=== PATIENT | female | born 1955 | race Caucasian/White ===

== ENCOUNTER → 2016-06-19 | Outpatient (CLI) | payer OTHER ==
[~2016-06-19] MED LIST: ACET-1256 PO; ASPEC325 PO; ASPI81TA28 PO; BIOT1CAP3 PO; BUPRTAB51 PO; COEN200C4 PO; CRG40 PO; CRS/10 PO; FRRG PO; HYDR-5688 PO; HYDR25TA5 PO; LEVO125T72 PO; LSN5 PO; MISCCAP80 PO; MULT-506 PO; QUET1TAB34 PO
[2016-06-19 11:20] LABS: BASO % 0.6 %; BASO ABS # 0.03 K/uL (0-0.2); COMPLETE YES; EOS % 2.8 %; IG% 0.2 %; LYMPH % 41.6 %; LYMPH ABS # 2.21 K/uL (1.2-3.4); MEAN CORPUSCULAR HEMOGLOBIN 33.3 pg (25-34); MEAN CORPUSCULAR HGB CONC 33.7 g/dl (32-36); MEAN PLATELET VOLUME 10.6 fL (7.4-10.4); MONO % 8.5 %; NEUT % 46.3 %; PLATELET COUNT 295 K/uL (130-400); RED BLOOD COUNT 4.14 M/uL (4.2-5.4); WHITE BLOOD COUNT 5.31 K/uL (4.8-10.8)
[2016-06-19 11:24] LABS: ESTIMATED AVERAGE GLUCOSE 114 mg/dl; HA1C FLAG Normal (Normal)
[2016-06-19 11:30] LABS: ALT/SGPT 24 U/L (12-78); BLOOD UREA NITROGEN 34 mg/dl (7-18); CALCIUM 9.5 mg/dl (8.5-10.1); CARBON DIOXIDE 25 mmol/L (21-32); CHLORIDE 108 mmol/L (98-107); CHOLESTEROL 281 mg/dl (0-200); GLUCOSE 93 mg/dl (70-99); POTASSIUM 4.2 mmol/L (3.5-5.1); SODIUM 141 mmol/L (136-145); TRIGLYCERIDES 203 mg/dl (0-150); VERY LOW DENSITY LIPOPROT CALC 41 mg/dl
[2016-06-19 11:40] LABS: ALB/GLOB RATIO 0.9 (0.9-2); ALKALINE PHOSPHATASE 67 U/L (45-117); AST/SGOT 15 U/L (15-37); CHOLESTEROL/HDL RATIO 4.8; HDL CHOLESTEROL 58 mg/dl; LDL CHOLESTEROL CALCULATED 182 mg/dl
== END | disposition home or self-care (01) ==
LOC: C.LAB1850 09:07
PROVIDERS: ATTEND Nurse Practitioner Adult Health
DX: I10 Essential (primary) hypertension (principal); E03.9 Hypothyroidism, unspecified; E66.01 Morbid (severe) obesity due to excess calories

== ENCOUNTER 2016-07-28 05:23 | Inpatient (IN) | payer OTHER ==
[2016-07-13 08:31] VITALS: BMI 43.0
--- NOTE | 2016-07-13 09:03 | PAT Medication Instructions ---
Service Date Jul 13, 2016. Current Home Medication List Acetaminophen (Tylenol), 1,000-3,000 MG PO DIRECTED Aspirin (Aspirin Ec), 81 MG PO QAM Bupropion Hcl (Wellbutrin Xl), 300 MG PO QAM Hydrochlorothiazide (Hydrochlorothiazide), 25 MG PO QAM Levothyroxine Sodium (Synthroid), 125 MCG PO QAM Lisinopril (Lisinopril), 5 MG PO QAM Nadolol (Nadolol), 40 MG PO QAM Quetiapine Fumarate (Seroquel), 100 MG PO HS Rosuvastatin Calcium (Crestor), 10 MG PO HS Medication Instructions For Your Scheduled Surgery - Hold the following medications the morning of surgery: Lisinopril (Lisinopril), 5 MG PO QAM Hydrochlorothiazide (Hydrochlorothiazide), 25 MG PO QAM - Take the following medications the morning of surgery with a sip of water: Nadolol (Nadolol), 40 MG PO QAM Levothyroxine Sodium (Synthroid), 125 MCG PO QAM Acetaminophen (Tylenol), 1,000-3,000 MG PO DIRECTED (if needed) Aspirin (Aspirin Ec), 81 MG PO QAM Bupropion Hcl (Wellbutrin Xl), 300 MG PO QAM - Take the following medications as scheduled the night before surgery: Rosuvastatin Calcium (Crestor), 10 MG PO HS Quetiapine Fumarate (Seroquel), 100 MG PO HS Acetaminophen (Tylenol), 1,000-3,000 MG PO DIRECTED (if needed) If you have any questions please call us at [phone] or [phone] ( [place]) or [phone]
--- NOTE | 2016-07-13 09:41 | DIAGNOSTIC IMAGING REPORT ---
CHEST PREADMISSION(PA/LAT) CLINICAL HISTORY: PAT preoperative evaluation COMPARISON STUDY: 05/27/2014 FINDINGS: The bones soft tissues and hemidiaphragms are normal. The cardiomediastinal silhouette is normal. The lungs are clear. The pulmonary vasculature is normal. IMPRESSION: Negative chest. Electronically signed by: Justice Leos M.D. 07/13/2016 9:40 AM Dictated Date/Time: 07/13/2016 9:39 AM
[2016-07-13 09:57] LABS: PROTHROMBIN TIME (PATIENT) 10.6 SECONDS (9.0-12.0)
--- NOTE | 2016-07-22 09:44 | HISTORY & PHYSICAL EXAMINATION ---
DATE OF ADMISSION: 07/28/2016 CHIEF COMPLAINT: Left hip pain. HISTORY OF PRESENT ILLNESS: A 61-year-old female who is well known to me from previous right hip replacement done about 2 years ago. Over the past 2 years, she has developed markedly increased pain and discomfort in left hip. She has actually resorted to using a cane to get around. She describes groin and thigh pain. She can not walk anything longer than a block or 2 at most. X-rays show progressive left hip arthritis. The patient elected to proceed with operative treatment. The right hip is doing well. PAST MEDICAL HISTORY: 1. Hypertension. 2. Elevated cholesterol. 3. Depression. 4. Obesity with a BMI of 44. 5. Hypothyroidism. 6. Basal cell skin cancer. PAST SURGICAL HISTORY: 1. Cervical fusion. 2. Right rotator cuff repair. 3. Right total hip replacement on 06/19/2014. 4. Eye surgery for retina disorder. 5. Mohs surgery. ALLERGIES: TO CODEINE AND CHLORHEXIDINE. She does okay with chlorhexidine solution but not the wipes. CURRENT MEDICINES: Include: 1. Aspirin 81 mg a day. 2. Nadolol 40 mg. 3. Lisinopril 5 mg a day. 4. Hydrochlorothiazide 25 mg a day. 5. Wellbutrin 300 mg a day. 6. Levothyroxine 125 mcg a day. 7. Crestor 10 mg a day. 8. Seroquel 100 mg a day. SOCIAL HISTORY: A 61-year-old female. She works as a nurse. She used to work for [employer]. She is related to Fabricio Del Cid a dean of boys on staff. She does live by herself. One drink per week. FAMILY HISTORY: Noncontributory. REVIEW OF SYSTEMS: Negative for diabetes, neurologic problems, vascular problems, bleeding disorders. Denies any chest pain. No shortness of breath. No history of DVT or PE. PHYSICAL EXAMINATION: GENERAL: Reveals a healthy, pleasant middle-aged female. Looks to be in good health. HEAD, EYES, EARS, NOSE, AND THROAT EXAMINATION: Benign. NECK: Supple. No lymphadenopathy. LUNGS: Clear to auscultation. HEART: Has a regular rate and rhythm. ABDOMEN: Soft, nontender, nondistended. EXTREMITY EXAMINATION: Grossly neurovascularly intact except as follows: Examination of the left hip and leg reveals the patient walks with a markedly antalgic gait. She is about 0.5 cm short on the left side compared to the right. She has marked pain with any type of hip motion. Negative straight leg raise. She is neurologically intact. X-RAYS: X-rays of the left hip were reviewed. It shows advanced left hip DJD. She has complete collapse of her femoral head and superior joint space. The right hip replacement looks to be in good position. ASSESSMENT: A 61-year-old female 2 years out from a right hip replacement with advanced left hip degenerative joint disease. Her disease has progressed markedly over the past 2 years. The pain is disabling. She has failed conservative care. PLAN: We are going to take her to the operating room and do a left total hip replacement. The risks and benefits of this procedure were explained to the patient including but not limited to DVT, PE, , infection, neurological problem, vascular problems, dislocation, leg length inequality, nerve palsy, blood transfusion, etc. The patient understands and desires to proceed. Informed consent was obtained. We did talk to her about holding her lisinopril the morning of surgery and make sure she takes her nadolol. She did have some hypotension issues after surgery. We will make sure we give her plenty of fluids. She should still take her beta shalom. As far as discharge plans, she is hoping to be discharged to home using home health program. She will get some help from family members.
[~2016-07-28] VITALS: Ht 165.1 cm; Wt 119.1 kg
[2016-07-28] VITALS (10 sets, daily range): BP systolic 97–151; BP diastolic 61–83; PULSE 57–73; TEMP 36.4–36.7; O2SAT 93–100; Ht 165.1 cm; Wt 119.1 kg
[~2016-07-28 05:23] MED LIST changes: -ASPEC325 PO; -BIOT1CAP3 PO; -COEN200C4 PO; -FRRG PO; -HYDR-5688 PO; -MISCCAP80 PO; -MULT-506 PO
[2016-07-28] MEDS ORDERED: ACETAMINOPHEN 500 MG TAB PO SCH (06:00)
[2016-07-28] MEDS ORDERED: LACTATED RINGER'S 1000ML 1,000 ML IV SCH (06:00)
[2016-07-28] MEDS ORDERED: CEFAZOLIN 2000 MG/60 ML D5W 60 ML IV SCH (06:00)
[2016-07-28] MEDS ORDERED: TRANEXAMIC ACID INJ 1,000 MG in SODIUM CHLORIDE 0.9% 100ML 100 ML IV SCH ×2 (06:00→16:00)
[2016-07-28] MEDS ORDERED: SCOPOLAMINE 1.5 MG TDSY TD SCH (06:00)
[2016-07-28] MEDS ORDERED: LACTATED RINGER'S 1000ML IV SCH (06:00)
[2016-07-28] MEDS ORDERED: GABAPENTIN 300 MG CAP PO SCH (06:00)
[2016-07-28] MEDS ORDERED: METOCLOPRAMIDE HCL 10 MG TAB PO SCH (06:00)
[2016-07-28] MEDS ORDERED: MIDAZOLAM HCL 1 MG/ML 2ML VIAL ONE ×2 (06:24→07:09)
[2016-07-28] MEDS ORDERED: PROPOFOL IV EMULSION 10 MG/ML 20 ML VIAL IV ONE ×2 (06:24→09:30)
[2016-07-28] MEDS ORDERED: ONDANSETRON INJ 2 MG/ML 2 ML VIAL ONE (06:24)
[2016-07-28] MEDS ORDERED: FENTANYL CITRATE INJ 50 MCG/1 ML 2 ML VIAL ONE (06:24)
[2016-07-28] MEDS ORDERED: BUPIVACAINE/EPINEPHRINE 0.5% MPF 1:200,000 30 ML VIAL ONE (06:28)
[2016-07-28] MEDS ORDERED: BACITRACIN 50000 UNIT VIAL ONE (06:28)
[2016-07-28] MEDS ORDERED: BUPIVACAINE 0.5 % 5 MG/1 ML PF 10ML VIAL ONE (06:29)
--- NOTE | 2016-07-28 06:51 | History & Physical Bridge Note ---
H&P Re-Evaluation Bridge Note: I have examined the patient, reviewed the History & Physical and in the interval since the performance of the History & Physical I have noted the following changes of clinical significance: No changes noted
[2016-07-28] MEDS ORDERED: EpHEDrine SULFATE 50MG/5ML SYR ONE (07:12)
[2016-07-28] MEDS ORDERED: KETAMINE HCL INJ 50 MG/ML 10 ML VIAL ONE (07:13)
[2016-07-28] MEDS ORDERED: SODIUM CHLORIDE 0.9% INJ 10 ML VIAL ONE (07:13)
[2016-07-28] MEDS ORDERED: PHENYLEPHRINE 100MCG/ML 5ML SYR ONE (07:26)
[2016-07-28] MEDS ORDERED: WATER, STERILE FOR INJ 10 ML VIAL ONE (07:32)
[2016-07-28] MEDS ORDERED: EpHEDrine SULFATE INJ 50 MG/ML AMP ONE (07:32)
[2016-07-28] MEDS ORDERED: GLYCOPYRROLATE INJ 0.2 MG/ML VIAL ONE (07:51)
[2016-07-28] MEDS ORDERED: HydrALAZINE HCL 20 MG/ML VIAL ONE (07:59)
[2016-07-28] MEDS ORDERED: ONDANSETRON INJ 2 MG/ML 2 ML VIAL IV PRN ×2 (08:00→08:45)
[2016-07-28] MEDS ORDERED: ATROPINE SULFATE 0.1 MG/ML 5ML SYR IV PRN (08:00)
[2016-07-28] MEDS ORDERED: HYDROmorphone INJ 2 MG/ML SYR/VIAL IV PRN (08:00)
[2016-07-28] MEDS ORDERED: EpHEDrine SULFATE INJ 50 MG/ML AMP IV PRN (08:00)
[2016-07-28] MEDS ORDERED: PHENYLEPHRINE 100MCG/ML 5ML SYR IV PRN (08:00)
--- NOTE | 2016-07-28 08:42 | [facility] Post Operative Brief Note ---
Immediate Operative Summary Operative Date Jul 28, 2016. Pre-Operative Diagnosis Left Hip Advanced Degenerative Joint Disease Post-Operative Diagnosis Left Hip Advanced Degenerative Joint Disease Procedure(s) Performed Left Total Hip Arthroplasty--Uncemented Surgeon Dr. Lee Willow Machine Tender Surgeon(s) DORIE Eli Estimated Blood Loss 300 ml Findings Left Hip DJD Fluids (cc crystalloids) 1000 cc Specimens A. Left Femoral Head Drains None Anesthesia Spinal Complication(s) None Disposition Recovery Room / PACU
[2016-07-28] MEDS ORDERED: MoRPHine SULFATE 2 MG/ML CARP IV PRN (08:45)
[2016-07-28] MEDS ORDERED: METOCLOPRAMIDE HCL INJ 5 MG/ML 2 ML VIAL IV PRN (08:45)
[2016-07-28] MEDS ORDERED: BISACODYL 10 MG SUPP PR PRN (08:45)
[2016-07-28] MEDS ORDERED: ALUMINUM/MAGNESIUM/SIMETH (MAALOX MAX) 30 ML UDC PO PRN (08:45)
[2016-07-28] MEDS ORDERED: SILVER SULFADIAZINE 1% CR 50 GM JAR EXT PRN (08:45)
[2016-07-28] MEDS ORDERED: DiphenhydrAMINE HCL 50 MG/ML VIAL IV PRN (08:45)
[2016-07-28] MEDS ORDERED: ZOLPIDEM TARTRATE 5 MG TAB PO PRN (08:45)
--- NOTE | 2016-07-28 09:23 | DIAGNOSTIC IMAGING REPORT ---
SINGLE VIEW PELVIS; SINGLE VIEW LEFT HIP CLINICAL HISTORY: Postoperative examination. FINDINGS: An AP portable view of the hips and lower pelvis with a crosstable lateral portable view of the left hip are compared to study dated 07/07/2016. The skeletal structures are osteopenic. A bipolar left hip arthroplasty is in near-anatomic alignment. 2 cortical lag screws transfix the acetabular cup. No acute fracture is seen. There are expected postoperative changes overlying the left hip including skin clips, subcutaneous gas, and soft tissue swelling. A right hip arthroplasty is unchanged in position. IMPRESSION: Expected postoperative findings status post left hip arthroplasty. No acute fracture is seen. Electronically signed by: Elfego Ewing M.D. 07/28/2016 9:21 AM Dictated Date/Time: 07/28/2016 9:20 AM
--- NOTE | 2016-07-28 10:57 | Anesthesiology Progress Note ---
Anesthesia Post Op Note Date & Time Jul 28, 2016 at 10:56 Vital Signs Pain Intensity: 0 Vital Signs Past 12 Hours Date Time Temp Pulse Resp B/P Pulse Ox O2 Delivery O2 Flow Rate FiO2 07/28/16 10:32 62 15 99 07/28/16 10:32 63 15 07/28/16 10:31 94/53 07/28/16 10:27 58 10 99 07/28/16 10:27 58 10 07/28/16 10:26 101/58 07/28/16 10:22 60 12 98 07/28/16 10:22 61 12 07/28/16 10:21 98/58 07/28/16 10:17 62 13 07/28/16 10:17 62 13 99 07/28/16 10:16 103/55 07/28/16 10:12 64 14 99 07/28/16 10:12 65 14 07/28/16 10:11 98/58 07/28/16 10:07 63 10 96 07/28/16 10:07 63 10 07/28/16 10:06 95/58 07/28/16 10:04 67 15 07/28/16 10:04 64 15 97 07/28/16 10:01 104/66 07/28/16 09:59 65 16 99 07/28/16 09:59 65 16 07/28/16 09:56 90/52 07/28/16 09:54 64 12 07/28/16 09:54 63 12 100 07/28/16 09:51 96/54 07/28/16 09:49 62 16 93/54 98 07/28/16 09:49 62 16 07/28/16 09:46 94/58 07/28/16 09:44 61 13 100 07/28/16 09:44 61 13 07/28/16 09:41 89/58 07/28/16 09:39 64 15 07/28/16 09:39 64 15 100 07/28/16 09:39 36.3 62 16 94/58 98 Nasal Cannula 2 07/28/16 09:36 92/56 07/28/16 09:34 63 17 100 07/28/16 09:34 62 17 07/28/16 09:33 64 19 07/28/16 09:33 64 19 100 07/28/16 09:31 96/60 07/28/16 09:28 61 17 07/28/16 09:28 60 17 100 07/28/16 09:26 90/56 07/28/16 09:23 65 14 99 07/28/16 09:23 66 14 07/28/16 09:21 94/58 07/28/16 09:18 63 15 100 07/28/16 09:18 62 15 07/28/16 09:17 64 8 100 07/28/16 09:17 64 8 07/28/16 09:16 98/56 07/28/16 09:12 62 10 100 07/28/16 09:12 62 10 07/28/16 09:11 90/55 07/28/16 09:07 64 13 07/28/16 09:07 64 13 99 07/28/16 09:06 102/77 07/28/16 09:03 63 15 07/28/16 09:03 62 15 99 07/28/16 09:01 117/65 07/28/16 08:58 62 13 100 07/28/16 08:58 62 13 07/28/16 08:57 60 16 07/28/16 08:57 60 16 104/68 100 07/28/16 08:52 59 10 99 07/28/16 08:52 59 10 07/28/16 08:51 138/78 07/28/16 08:48 112/70 07/28/16 08:47 68 12 07/28/16 08:47 67 12 98 07/28/16 08:46 84/55 07/28/16 08:44 76/49 07/28/16 08:43 81/50 07/28/16 08:43 75/50 07/28/16 08:42 72 13 07/28/16 08:42 36.4 69 19 81/50 97 Room Air 07/28/16 08:42 72 13 95 07/28/16 05:46 36.6 57 18 151/83 98 Room Air Notes Mental Status: alert / awake / arousable, participated in evaluation Pt Amnestic to Procedure: Yes Nausea / Vomiting: adequately controlled Pain: adequately controlled Airway Patency, RR, SpO2: stable & adequate BP & HR: stable & adequate Hydration State: stable & adequate Anesthetic Complications: no major complications apparent
--- NOTE | 2016-07-28 11:51 | OPERATIVE REPORT ---
DATE OF OPERATION: 07/28/2016 SURGEON: Dr. Cisco Lee. STAMPING OPERATOR: DORIE Espinosa PREOPERATIVE DIAGNOSIS: Left hip degenerative joint disease. POSTOPERATIVE DIAGNOSIS: Same. PROCEDURE PERFORMED: Left uncemented ceramic on highly cross-linked polyethylene total hip arthroplasty. COMPLICATIONS: None. ESTIMATED BLOOD LOSS: 300 mL. FLUID REPLACEMENT: 1000 mL crystalloid fluid replacement. ANESTHESIA: Spinal. DRAINS: None. SPECIMENS: Left femoral head sent for pathology. OPERATIVE INDICATIONS: The patient is a 61-year-old female who has had a history of hip problems in the past. She underwent a right hip replacement 2 years ago and has done well from this. Over the past year to year and a half, she developed markedly increasing left hip pain and discomfort to the point where she has had to use a cane to get around. She has significant nighttime pain. X-rays showed marked progression of her hip arthritis. The patient elected to proceed with operative treatment. OPERATIVE FINDINGS: Operative findings revealed advanced left hip DJD. She had grade 4 [id number] disease of the femoral head and acetabulum. She had a large joint effusion. She had flattening of the femoral head. OPERATIVE IMPLANTS: Operative implants consisted of: 1. Biomet G7 size 54 mm acetabular shell. 2. A 6.5 cancellous acetabular screws, 1 at 35 mm length and 1 at 25 mm in length. 3. An apex hole eliminator. 4. Highly cross-linked polyethylene liner with a 54 mm outer diameter, 36 mm inner diameter. 5. A DePuy size 12 large stature femoral stem. 6. A +5/36 mm ceramic articular ball. OPERATIVE PROCEDURE: The patient taken to the operating room, identified and placed on the operating table in supine position. All contact areas were appropriately padded. IV antibiotics were provided by anesthesia team. A spinal anesthetic had been implemented in the holding area. Hudson catheter was placed in sterile fashion. The patient was then placed in the right lateral decubitus position. An axillary roll was placed. [facility] was used for positioning. The left hip and leg were then prepped and draped in usual sterile fashion. A posterolateral approach to the left hip was then performed through a curvilinear incision centered over the greater trochanter. Sharp dissection was carried out through the subcutaneous tissues down to the level of the IT band and gluteal fascia. She did have a fairly thick soft tissue envelope. The IT band and gluteal fascia were then incised longitudinally in line with the skin incision. The greater trochanteric bursa was excised. The piriformis and external rotators were tagged and taken off the posterior aspect of the femur. Great care was taken throughout the procedure to protect the sciatic nerve at all times. Posterior capsulotomy was then performed leaving a large flap for later repair. Hip was internally rotated and dislocated. Femoral neck osteotomy cut was made with the final cut 10 mm above the lesser trochanter. Femoral head was removed and sent for pathology. The femur was retracted anteriorly. Attention was then drawn to the acetabulum. The acetabular labrum was excised. The pulvinar fat was excised. Sequential reaming of the acetabulum was then performed beginning with a size 47 and progressing up to a 53. A 54 mm Biomet G7 acetabular shell was then placed in about 40 degrees of lateral opening and 20 degrees of anteversion. It was fixed with two 6.5 cancellous acetabular screws. A trial liner was placed. Attention was then drawn to the femur. The proximal femur was entered with a cookie cutter followed by canal finder and lateralizing reamer. Sequential reaming of the femur was then performed beginning with a size 9 reamer and progressing up to an 11.5. We got pretty good chatter beginning an 11. We then broached beginning with a size 10.5 and progressing up to 12 large. We got good metaphyseal fit. We trialed the hip and the +5/36 mm articular ball provided full stability and full extension and external rotation and flexion to 90 degrees and internal rotation to 50+ degrees. Attention was then drawn toward placement of these permanent implants. All trial implants were removed. An apex hole eliminator was placed on highly cross-linked polyethylene liner with 54 mm outer diameter, and a 36 mm inner diameter was placed. A 12 large stature AML femoral stem was then impacted in position. We got good scratch fit. A +5/36 mm articular ball was then placed. Hip was located and once again found to be stable. Attention was then drawn toward closing. The wound was irrigated with copious amounts of pulsatile lavage solution. I did inject locally with 60 mL of 0.5% Marcaine with epinephrine. The posterior capsule and external rotators were repaired through drill holes and the posterior trochanter with #2 Ti-Cron suture. The IT band and gluteal fascia were then closed with #1 PDS suture in running fashion. The subcutaneous tissues were then closed with 2 layers with the deep layer #1 Vicryl suture and subcutaneous tissue with 2-0 Dexon suture in a buried interrupted fashion. Skin was closed skin geo. Leg was then cleaned and dried and a sterile dressing of Xeroform, 4 x 4, sterile ABD pad and foam tape was applied. The patient then transferred to the recovery room in stable condition. The patient tolerated the procedure with no complications. All needle and sponge counts were correct at the end of the operation. I attest to the content of the Intraoperative Record and any orders documented therein. Any exceptio ns are noted below.
[2016-07-28] MEDS: KETOROLAC TROMETHAMINE 30 MG/ML VIAL IV. SCH ×3 (12:57→23:59)
[2016-07-28] MEDS: HYDROCODONE/ACETAMOPHEN 5/325MG TAB PO PRN ×2 (13:07→21:32)
[2016-07-28] MEDS: FERROUS GLUCONATE 324 MG TAB PO SCH ×2 (13:13→17:52)
[2016-07-28] MEDS: D5W AND 1/2NSS + 20MEQ KCL 1,000 ML IV SCH ×2 (13:30→19:15)
--- NOTE | 2016-07-28 13:30 | PROGRESS NOTE ---
DATE: 07/28/2016 DATE: 07/28/2016. SUBJECTIVE: A 61-year-old female postop from a left hip replacement. She is starting to have some pain. Denies any chest pain or shortness of breath. Not feeling dizzy or lightheaded. OBJECTIVE: VITAL SIGNS: Temperature is 36.4. Vital signs stable. PHYSICAL EXAMINATION: GENERAL: Reveals a healthy pleasant, middle-aged female. She is sitting up in bed and looks pretty comfortable. She is talking to her family. LUNGS: Clear to auscultation. HEART: Regular rate and rhythm. ABDOMEN: Soft, nontender, nondistended. EXTREMITY EXAMINATION: Grossly neurovascularly intact except as follows: Examination of the left lower extremity reveals the leg to be well aligned. Dressing is clean, dry and intact. Her leg lengths were equal. Hip is located. She is neurologically intact. She can dorsiflex and plantarflex her foot appropriately. X-RAYS: X-rays of the left hip from recovery room were reviewed. It shows a left uncemented total hip arthroplasty. Components looked to be in good position. No signs of problems. ASSESSMENT: A 61-year-old female postop from a left hip replacement, doing pretty well. Just starting to have significant amount of pain. She did not have any morphine in her spinal. Her hip is located. She is neurologically intact. PLAN: 1. DVT prophylaxis including thigh-high TEDs, SCDs, and aspirin twice a day. 2. PT/OT. Weightbearing as tolerated. Left total hip protocol. 3. Pain control: Doing well but reasonably well with current pain regimen. 4. IV antibiotics x24 hours. 5. Disposition: Plan to discharge to home with some home health once adequately recovered.
[2016-07-28] MEDS: CEFAZOLIN IV 2,000 MG in DEXTROSE 5% 50ML 50 ML IV SCH ×2 (15:10→22:27)
[2016-07-28] MEDS: CHECK SCOPOLAMINE PATCH PLACEMENT SCH ×2 (15:54→23:58)
[2016-07-28] MEDS: TAPENTADOL ER 50 MG TABCR PO SCH (20:33)
[2016-07-28] MEDS: ASPIRIN 325 MG ECTAB PO SCH (20:34)
[2016-07-28] MEDS: QUETIAPINE FUMARATE 100 MG TAB PO SCH (20:34)
[2016-07-28] MEDS: ROSUVASTATIN CALCIUM 10 MG TAB PO SCH (20:34)
[2016-07-28] MEDS: DOCUSATE SODIUM 100 MG CAP PO SCH (20:34)
[2016-07-29] MEDS: D5W AND 1/2NSS + 20MEQ KCL 1,000 ML IV SCH ×2 (01:25→07:52)
[2016-07-29 03:28] VITALS: BP 99/62; PULSE 63; TEMP 37.1; O2SAT 98
[2016-07-29] MEDS: LEVOTHYROXINE 125 MCG TAB PO SCH (05:33)
[2016-07-29] MEDS: KETOROLAC TROMETHAMINE 30 MG/ML VIAL IV. SCH (05:33)
[2016-07-29 06:13] LABS: BASO % 0.2 %; BASO ABS # 0.01 K/uL (0-0.2); COMPLETE YES; EOS % 1.7 %; HEMATOCRIT 29.3 % (37-47); IG% 0.3 %; LYMPH ABS # 1.39 K/uL (1.2-3.4); MEAN CORPUSCULAR HEMOGLOBIN 32.8 pg (25-34); MEAN CORPUSCULAR HGB CONC 33.8 g/dl (32-36); MONO % 11.7 %; NEUT % 62.1 %; PLATELET COUNT 224 K/uL (130-400); RED BLOOD COUNT 3.02 M/uL (4.2-5.4)
[2016-07-29 06:53] LABS: BUN/CREATININE RATIO 17.5 (10-20); CALCIUM 8.6 mg/dl (8.5-10.1); CREATININE 1.4 mg/dl (0.60-1.20); POTASSIUM 4.3 mmol/L (3.5-5.1)
[2016-07-29 07:17] VITALS: BP 94/57; PULSE 62; TEMP 36.4; O2SAT 96
[2016-07-29] MEDS: CHECK SCOPOLAMINE PATCH PLACEMENT SCH ×3 (07:53→22:37)
[2016-07-29] MEDS ORDERED: FRRG PO (08:16)
[2016-07-29] MEDS ORDERED: HYDR-5688 PO (08:16)
[2016-07-29] MEDS ORDERED: ASPEC325 PO (08:16)
--- NOTE | 2016-07-29 08:22 | Discharge Instructions ---
Discharge Instructions Date of Service Jul 29, 2016. Admission Reason for Admission: Left Hip Degenerative Joint Disease Discharge Discharge Diagnosis / Problem: Left Hip Replacement Discharge Goals Goal(s): Decrease discomfort, Improve function, Increase independence, Improve disease control, Therapeutic intervention Activity Recommendations Activity Limitations: per Instructions/Follow-up section Weightbearing Status: Left weightbearing . Instructions / Follow-Up Instructions / Follow-Up ACTIVITY RECOMMENDATIONS: Physical Therapy: * Aggressive physical therapy is not usually needed. You will learn to take care of yourself safely and walk. * Follow the "Hip Precautions Instructions." * In some cases, the social insurance adviser at the hospital will arrange to have a therapist come to your house for the first couple of weeks to help you learn these skills. * You need to practice on your own or with the help of a family member as needed. * When you learn these skills, most of the therapy can be done on your own. Home Exercise: * You were shown a series of exercises in the hospital. Do these exercises three to four times each day including the exercises you were shown in physical therapy. Walking: * Get up and walk several times each day. For the first four weeks, try not to stand or walk for more than one hour at a time. If you do stand or walk for more than one hour, you will not hurt anything, but your leg will likely swell. * As you feel comfortable, you may change from the walker or crutches to a cane and then to independent walking. MEDICATIONS: New Medicine: * You will likely be taking one or more of these medicines: 1. Vicoden - Take, as directed, when you need it, every four to six hours to control your pain. 2. Iron Sulfate - Take three times each day for the month after surgery to help you replace the blood lost during surgery. 3. Aspirin - Thins your blood to lessen the chance of forming a blood clot. * The most common side effects of pain medicine and iron are nausea and constipation. If nausea or constipation is too much of a problem or if you have any questions about your new medicines or doses, call [facility] at [phone]. We will try to help you manage these issues. VERY IMPORTANT TO READ AND REVIEW" Pain: * The immediate post-operative period after hip replacement surgery is often quite painful. * You are given a prescription for pain medicine. You should take it, as directed, when you need it, especially before physical therapy and before going to bed. Pain that interferes with sleep is very common and can last several months. * You will likely need pain medicine for the first two to four weeks. It will not stop all of the pain. The pain will lessen and as you feel better, you may change to milder pain medicine such as Tylenol. * The most common side effects of pain medicine are nausea and constipation, so don't take more than you need. SPECIAL CARE INSTRUCTIONS: TEDs/Elastic Stockings: * The white elastic stockings help limit swelling and prevent blood clots from forming in your legs. The more you wear them, the more they work. * Wear them for six weeks. Prevention of Infection: * Take antibiotics one hour before any dental cleaning, dental work, urological procedure, gastrointestinal procedure or any invasive surgery in order to prevent your new joint from getting infected. * You may get the antibiotics from the doctor performing the procedure or you may call our office at before and we will call in a prescription to the pharmacy of your choice. Things to Watch For: * Drainage from the incision site that occurs more than one week after your surgery. * Severely increased leg pain or swelling. * Increased redness at the incision site. * Fever above 102 degrees Fahrenheit. * Unusual chest pain or shortness of breath. * Unusual pain or burning with urination. Call [facility] at with any of the above problems or if you have any questions about your medicines or recovery. FOLLOW UP VISIT: Make an appointment to see your doctor for approximately two weeks after surgery for a progress check and staple removal by calling the office at . Current Hospital Diet Patient's current hospital diet: Regular Diet Discharge Diet Recommended Diet: Regular Diet Procedures Procedures Performed: Left Total Hip Arthroplasty--Uncemented Pending Studies Studies pending at discharge: no Laboratory Results Hemoglobin A1c Test 06/19/16 09:09 Range/Units Estimated Average Glucose 114 mg/dl Hemoglobin A1c 5.6 4.5-5.6 % Lipid Panel Test 06/19/16 09:09 Range/Units Triglycerides Level 203 H 0-150 mg/dl Cholesterol Level 281 H 0-200 mg/dl HDL Cholesterol 58 mg/dl Cholesterol/HDL Ratio 4.8 LDL Cholesterol, Calculated 182 mg/dl Medical Emergencies . Who to Call and When: Medical Emergencies: If at any time you feel your situation is an emergency, please call 911 immediately. . Non-Emergent Contact Non-Emergency issues call your: Surgeon . "Provider Documentation" section prepared by Cisco Lee. VTE Core Measure Inpt VTE Proph given/why not?: Other Anticoagulation, T.E.D. Stockings, SCD's
--- NOTE | 2016-07-29 08:33 | PROGRESS NOTE ---
DATE: 07/29/2016 DATE: 07/29/2016. SUBJECTIVE: A 61-year-old female postop day 1 from left total hip replacement. She is doing pretty well. Pain seems to be better today. Denies any chest pain or shortness of breath. She is still hypotensive, but asymptomatic. OBJECTIVE: VITAL SIGNS: Temperature 36.4. Vital signs stable. Blood pressure 94/57. PHYSICAL EXAMINATION: GENERAL: Reveals a healthy pleasant, middle-aged female. She is lying in bed, looks quite comfortable. EXTREMITIES: Examination of left hip and leg reveals leg lengths to be equal. Dressing is clean, dry and intact. She can dorsiflex and plantarflex her foot appropriately. She is neurologically intact. LABORATORY DATA: Hemoglobin 9.9, hematocrit 29.3. Electrolytes are stable. Creatinine is slightly elevated at 1.40. ASSESSMENT: A 61-year-old female postop day 1 from left total hip replacement, doing pretty well. She has been a little hypotensive, but asymptomatic. We have been giving her fluids. Her pain is controlled. Hip is located. She is neurologically intact. PLAN: 1. DVT prophylaxis including thigh-high TEDs, SCDs, and aspirin twice a day. 2. PT/OT. She can weightbear as tolerated. Left total hip protocol. 3. Pain control. Doing pretty well with current pain regimen. 4. Disposition: Plan to discharge to home with home health once adequately recovered.
[2016-07-29] MEDS: FERROUS GLUCONATE 324 MG TAB PO SCH ×3 (08:51→17:53)
[2016-07-29] MEDS: ASPIRIN 325 MG ECTAB PO SCH ×2 (08:51→21:18)
[2016-07-29] MEDS: MULTIVITAMIN TAB PO SCH (08:51)
[2016-07-29] MEDS: DOCUSATE SODIUM 100 MG CAP PO SCH ×2 (08:51→21:18)
[2016-07-29] MEDS: BuPROPion XL 300 MG TABCR PO SCH (08:51)
[2016-07-29] MEDS: PANTOprazole SOD 40 MG TAB PO SCH (08:52)
[2016-07-29] MEDS: HYDROCHLOROTHIAZIDE 25 MG TAB PO SCH (08:57)
[2016-07-29] MEDS: NADOLOL 40 MG TAB PO SCH (08:57)
[2016-07-29] MEDS: TAPENTADOL ER 50 MG TABCR PO SCH ×2 (08:57→21:00)
[2016-07-29 09:00] VITALS: BP 103/60; PULSE 70
[2016-07-29] MEDS: HYDROCODONE/ACETAMOPHEN 5/325MG TAB PO PRN ×2 (11:06→21:17)
[2016-07-29 11:29] VITALS: BP 117/78; PULSE 72; TEMP 37.2; O2SAT 95
[2016-07-29] MEDS: KETOROLAC TROMETHAMINE 15 MG/ML VIAL IV. SCH ×4 (12:18→23:28)
[2016-07-29] MEDS: MAGNESIUM HYDROXIDE SUSP 30 ML UDC PO PRN ×2 (15:24→21:17)
[2016-07-29 15:48] VITALS: BP 107/61; PULSE 75; TEMP 37; O2SAT 96
[2016-07-29] MEDS: QUETIAPINE FUMARATE 100 MG TAB PO SCH (21:18)
[2016-07-29] MEDS: ROSUVASTATIN CALCIUM 10 MG TAB PO SCH (21:19)
[2016-07-29 23:15] VITALS: BP 120/74; PULSE 90; TEMP 37; O2SAT 96
[2016-07-30 05:54] LABS: BUN/CREATININE RATIO 15.9 (10-20); CALCIUM 8.7 mg/dl (8.5-10.1); CREATININE 1.4 mg/dl (0.60-1.20); POTASSIUM 3.9 mmol/L (3.5-5.1)
[2016-07-30] MEDS: LEVOTHYROXINE 125 MCG TAB PO SCH (06:02)
[2016-07-30] MEDS: KETOROLAC TROMETHAMINE 15 MG/ML VIAL IV. SCH (06:02)
[2016-07-30] MEDS: HYDROCODONE/ACETAMOPHEN 5/325MG TAB PO PRN (06:08)
[2016-07-30 06:50] VITALS: BP 146/80; PULSE 85; TEMP 37; O2SAT 95
[2016-07-30] MEDS: FERROUS GLUCONATE 324 MG TAB PO SCH (07:21)
[2016-07-30] MEDS: HYDROCHLOROTHIAZIDE 25 MG TAB PO SCH (07:21)
[2016-07-30] MEDS: BuPROPion XL 300 MG TABCR PO SCH (07:22)
[2016-07-30] MEDS: NADOLOL 40 MG TAB PO SCH (07:22)
[2016-07-30] MEDS: ASPIRIN 325 MG ECTAB PO SCH (07:23)
[2016-07-30] MEDS: DOCUSATE SODIUM 100 MG CAP PO SCH (07:23)
[2016-07-30] MEDS: MULTIVITAMIN TAB PO SCH (07:23)
[2016-07-30] MEDS: PANTOprazole SOD 40 MG TAB PO SCH (07:23)
--- NOTE | 2016-07-30 08:34 | PROGRESS NOTE ---
DATE: 07/30/2016 SUBJECTIVE: A 61-year-old female postop day 2 from left total hip replacement, doing well. Pain seems to be improved. No chest pain or shortness of breath. Blood pressure is improved. OBJECTIVE: VITAL SIGNS: Temperature 37.0. Vital signs stable. GENERAL: Reveals a healthy, pleasant middle-aged female sitting up in her bedside chair and looks comfortable. LUNGS: Clear to auscultation. HEART: Regular rate and rhythm. ABDOMEN: Soft, nontender, nondistended. EXTREMITIES: Grossly neurovascularly intact except as follows: Examination of the left lower extremity reveals the dressing to be clean, dry and intact. Hip is located. She is neurologically intact. ASSESSMENT: A 61-year-old female postop day 2 from left total hip replacement, doing pretty well. Blood pressure is improved. Pain is controlled. PLAN: 1. DVT prophylaxis including thigh-high TEDs, SCDs, and aspirin twice a day. 2. PT/OT. Weightbearing as tolerated. Left total hip protocol. 3. Pain control, doing well with current pain regimen. 4. Hypotension. Resolved. We will resume her lisinopril. 5. Disposition: Plan to discharge to home after therapy today.
[2016-07-30] MEDS ORDERED: LISINOPRIL 5 MG TAB PO SCH (09:00)
[2016-07-30 09:05] VITALS: BP 146/80; PULSE 85; TEMP 37; O2SAT 95
[2016-07-30] MEDS: TAPENTADOL ER 50 MG TABCR PO SCH (09:15)
[2016-07-30 15:06] VITALS: BP 146/80; PULSE 85; O2SAT 95
--- NOTE | 2016-08-04 17:27 | DISCHARGE SUMMARY ---
ADMITTING PHYSICIAN AND SURGEON: Dr. Lee. ADMITTING DIAGNOSIS: Left hip degenerative joint disease. SURGERY PERFORMED: Left total hip arthroplasty. SECONDARY DIAGNOSES: Includes hypertension, elevated cholesterol, depression, obesity, hypothyroidism, basal cell skin cancer. CONSULTS: None obtained. HISTORY AND PHYSICAL EXAMINATION: Well documented in patient's chart. HOSPITAL COURSE: The patient was admitted on 07/28/2016 underwent total hip arthroplasty, tolerated the procedure well. There were no complications. She was transferred to the PACU postoperatively and later to the orthopedic floor for further care. She was given Ancef for antibiotic prophylaxis, EREN stockings, SCDs and aspirin for DVT prophylaxis. Her hemoglobin, hematocrit and vital signs were monitored during her hospital stay and remained stable. She developed some postoperative anemia with hemoglobin of 9.9. She was also hypotensive postoperatively initially, but this did resolve and her lisinopril was resumed as well. There were no complications during her hospital stay. By postoperative day 2, she was tolerating a general diet, pain was controlled with oral pain medicine. She was participating in physical therapy and had no signs or symptoms of deep vein thrombosis. On postop day 2, she was discharged home in good condition, set up with home health services. She was given printed discharge instructions including prescriptions for aspirin 325 mg b.i.d., iron supplement and Rawlins. She can continue her home medications with the exception of her home dose of aspirin, continue physical therapy, weightbearing as tolerated. EREN stockings, total hip precautions and follow up in 10-12 days or sooner if there are problems or concerns.
== END 2016-07-30 10:06 | disposition home health service (06) | DRG 470 ==
LOC: ENRESERVDT → ENRESERVTM → C.ACU 05:23 → C.3E 06:40
PROVIDERS: ADMIT Orthopaedic Surgery Sports Medicine; ATTEND Orthopaedic Surgery Sports Medicine
PROC: 0SRB04A Replacement of Left Hip Joint with Ceramic on Polyethylene Synthetic Substitute, Uncemented, Open Approach (ICD-10-PCS; principal; 2016-07-28 07:00)
DX: M16.12 Unilateral primary osteoarthritis, left hip (principal); Z68.41 Body mass index [BMI] 40.0-44.9, adult; M25.452 Effusion, left hip; I95.9 Hypotension, unspecified; I10 Essential (primary) hypertension; E78.00 Pure hypercholesterolemia, unspecified; E03.9 Hypothyroidism, unspecified; E66.01 Morbid (severe) obesity due to excess calories; F41.9 Anxiety disorder, unspecified; F32.9 Major depressive disorder, single episode, unspecified; Z96.641 Presence of right artificial hip joint; Z98.1 Arthrodesis status; Z79.82 Long term (current) use of aspirin; Z79.899 Other long term (current) drug therapy

== ENCOUNTER → 2016-09-13 | Day surgery (SDC) | payer OTHER ==
[2016-08-31 10:10] VITALS: Ht 162.6 cm; Wt 114.1 kg
[~2016-09-13] VITALS: Ht 162.6 cm; Wt 114.1 kg
[~2016-09-13] MED LIST changes: +500ML BSS 0.3ML EPI 1:1000PF IRRIG ONE; -ACET-1256 PO; +ACETAMINOPHEN 325 MG TAB PO PRN; +AMVISC PLUS 0.8ML SYRINGE INT OCU ONE; +ASPEC325 PO; -ASPI81TA28 PO; +ATROPINE SULFATE 0.1 MG/ML 5ML SYR IV PRN; +BSS FLUSH ONE; +ENDOCOAT 0.85ML SYRINGE INT OCU ONE; +EpINEphrine INJ 1MG/ML AMP 1 MG/ML AMP ONE; +HYDR-5688 PO; +LACTATED RINGER'S 1000ML 500 ML IV SCH; +LIDOCAINE 4% OP SOLN DROP CHARGE ONE; +LIDOCAINE 4% OP SOLN DROP CHARGE OPR SCH; +LIDOCAINE HCL 1% MPF 2 ML VIAL ONE; +MIDAZOLAM HCL 1 MG/ML 2ML VIAL ONE; +MIX: 4ML BSS 1ML EPI 1:1000 PF TOP ONE; +MOXIFLOXACIN OPH SOLN PER DROP CHARGE ONE; +PHENYLEPHRINE 10% OPR ONE; +POVIDONE-IODINE OP SOLN 30 ML BTL ONE; +PROPARACAINE 0.5% OP SOLN PER DROP CHARGE OPR SCH; +PROPARACAINE HCL 0.5% OP SOLN 15 ML BTL OPR ONE; +TOBRAMYCIN/DEXAMETHASONE OPH OINT PER APPLN CHARGE ONE
[2016-09-13] MEDS: TROPICAMIDE 1% OP SOLN PER DROP CHARGE OPR SCH ×3 (09:50→10:00)
[2016-09-13] MEDS: PHENYLEPHRINE HCL 10% OP SOLN 5 ML BTL OPR SCH ×3 (09:51→09:59)
--- NOTE | 2016-09-13 09:52 | History & Physical Bridge - SC ---
H&P Re-Evaluation Bridge Note: I have examined the patient, reviewed the History & Physical and in the interval since the performance of the History & Physical I have noted the following changes of clinical significance: No changes noted. Right eye femtosecond laser-assisted cataract surgery.
[2016-09-13] MEDS: CYCLOPENTOLATE HCL 1% OP SOLN PER DROP CHARGE OPR SCH ×3 (09:54→10:05)
[2016-09-13] MEDS: MOXIFLOXACIN OPH SOLN PER DROP CHARGE OPR SCH ×3 (09:54→10:06)
--- NOTE | 2016-09-13 11:03 | [facility] Post Operative Brief Note ---
Immediate Operative Summary Operative Date September 13, 2016. Pre-Operative Diagnosis Right eye cataract Post-Operative Diagnosis same Procedure(s) Performed Right Cataract Phacoemulsification With Intraocular Lens Implant; Toric Lens Surgeon Dr James Regulator Pin Inserter Surgeon(s) none Estimated Blood Loss 0 Findings right cataract Specimens none Complication(s) None Disposition
[2016-09-13 11:05] VITALS: TEMP 36.1
--- NOTE | 2016-09-13 11:05 | [facility] Operative Report ---
Operative Report Date of Service September 13, 2016. Operative Report DATE OF OPERATION: 09/13/16 PREOPERATIVE DIAGNOSIS: Senile nuclear cataract and astigmatism, right eye POSTOPERATIVE DIAGNOSIS: Senile nuclear cataract and astigmatism, right eye PROCEDURE PERFORMED: Femtosecond laser-assisted phacoemulsification with toric intraocular lens implantation, right eye SURGEON: Dr. Jonny James ANESTHESIA: Topical with 1% intracameral lidocaine and monitored anesthesia care COMPLICATIONS: None DESCRIPTION OF PROCEDURE: After positively identifying the patient both verbally and by wristband in the preoperative area, the right eye was marked as the operative eye. Using a sterile marker, the 3:00, 6:00, and 9:00 positions on the limbus were marked after placing a drop of proparacaine. Likewise, the 38 degree axis was marked with a Robomarker. The patient was first brought to the laser room where the laser was used to create the capsulotomy, lens fragmentation, and main incision. The patient was then brought back to the operating room by the anesthesia and nursing staff where they were given a drop of tetracaine and betadine into the operative eye. They were then sterilely prepped and draped in the standard fashion typical for ophthalmic surgery. Steri-strips were placed along the upper eyelids to keep the lashes back, and a lid speculum was placed into the operative eye. At this point, a documented time out was performed with members of the ophthalmology, nursing, and anesthesia staffs all agreeing upon the correct patient, correct location for surgery, correct procedure, and correct type and power of intraocular lens to be implanted. The microscope was then swung into position. Then, a paracentesis wound was made using a sideport blade. Then, in sequence, 1% preservative-free lidocaine followed by Endocoat viscoelastic was injected into the anterior chamber. Next , the main incision was opened with a Chato spatula, and then Utrata forceps were used to remove the capsulotomy. Hydrodissection was then performed with BSS on a flat-tip cannula. Next, the phacoemulsification handpiece was introduced into the eye and used to remove the nucleus in a [id number] fashion. This was done without complication and then the irrigation-aspiration handpiece was introduced into the eye and used to remove all remaining cortical and epinuclear material. Amvisc was then injected into the anterior chamber as well as into the capsular bag and using the lens injector system, a KHW395 17.5 D lens, serial number [id number], and expiration date 06/2020 was injected into the capsular bag and rotated into the correct position to correctly line up with the toric marking. Next, the irrigation-aspiration handpiece was used to remove all remaining Amvisc. BSS was used to hydrate the main wound, and then BSS was injected into the paracentesis site to reach physiologic pressure and then the main wound was checked and found to be watertight. The patient was given drops of Vigamox and tobradex ointment into the operative eye, and then the surrounding area was cleaned and dried. A clear plastic shield was placed over the eye and the patient was then sat up and taken from the operating room by the anesthesia staff having tolerated the procedure well and suffering no complications. DISPOSITION: The patient was returned to the recovery room in stable condition. I attest to the content of the Intraoperative Record and any orders documented therein. Any exceptions are noted below.
--- NOTE | 2016-09-13 11:06 | Discharge Instructions-SurgCtr ---
Discharge Instructions Date of Service September 13, 2016. Visit Reason for Visit: Cataract Right Eye Discharge Discharge Diagnosis / Problem: right cataract Discharge Goals Goal(s): Decrease discomfort, Improve function Activity Recommendations Activity Limitations: as noted below Anesthesia . Post Anesthesia Instructions: If you have had General Anesthesia or IV Sedation: * Do not drive today. * Resume driving when surgeon permits. * Do not make important decisions or sign legal documents today. * Call surgeon for: 1. Temperature elevations greater than 101 degrees F. 2. Uncontrollable pain. 3. Excessive bleeding. 4. Persistent nausea and vomiting. 5. Medication intolerance (nausea, vomiting or rash). * For nausea and vomiting use only clear liquids such as: tea, soda, bouillon until nausea subsides, then gradually increase diet as tolerated. * If you have any concerns or questions, call your surgeon's office. If physician is unavailable and it is an emergency, call 911 or go to the nearest emergency room. . Instructions / Follow-Up Instructions / Follow-Up ACTIVITY RECOMMENDATIONS: * Light activities. * You may walk outside, read, watch television. * You may notice redness on the white part of the eye and some blurry vision - this is normal. MEDICATIONS: Resume previous medications unless instructed otherwise by your surgeon. Start all eye drops at 1 pm today: * Eye drops (today): Prednisone - one drop in operative eye every 2 hours while awake Ofloxacin - one drop in operative eye every 2 hours while awake Bromfenac - one drop in operative eye daily SPECIAL CARE INSTRUCTIONS: * Tape plastic shield over eye to sleep at night. Call your doctor at with any concerns or problems. FOLLOW UP VISIT: Follow-up with Dr James at [facility] as scheduled. Diet Recommendations Home Diet: no limitations Procedures Procedures Performed: Right Cataract Phacoemulsification With Intraocular Lens Implant; Toric Lens Pending Studies Studies pending at discharge: no Medical Emergencies . Who to Call and When: Medical Emergencies: If at any time you feel your situation is an emergency, please call 911 immediately. . Non-Emergent Contact Non-Emergency issues call your: Surgeon . . "Provider Documentation" section prepared by Jonny James. .
--- NOTE | 2016-09-13 11:21 | Anesthesia Progress Nt - [facility] ---
Anesthesia Post Op Note Date & Time September 13, 2016 at 11:21 Vital Signs Pain Intensity: 0 Vital Signs Past 12 Hours Date Time Temp Pulse Resp B/P Pulse Ox O2 Delivery O2 Flow Rate FiO2 09/13/16 11:05 36.1 55 18 130/55 99 Room Air 09/13/16 10:34 154/82 100 09/13/16 10:25 52 147/89 100 09/13/16 09:44 36.5 59 18 139/90 96 Room Air Notes Mental Status: alert / awake / arousable, participated in evaluation Pt Amnestic to Procedure: Yes Nausea / Vomiting: adequately controlled Pain: adequately controlled Airway Patency, RR, SpO2: stable & adequate BP & HR: stable & adequate Hydration State: stable & adequate Anesthetic Complications: no major complications apparent
[2016-09-13 11:25] VITALS: BP 152/94; PULSE 55; O2SAT 100
== END | disposition home or self-care (01) ==
LOC: X.SURG 09:32
PROVIDERS: ATTEND Ophthalmology
DX: H25.11 Age-related nuclear cataract, right eye (principal); I10 Essential (primary) hypertension; F32.9 Major depressive disorder, single episode, unspecified; E78.00 Pure hypercholesterolemia, unspecified

== ENCOUNTER → 2017-05-02 | Outpatient (CLI) | payer OTHER ==
[~2017-05-02] MED LIST changes: -500ML BSS 0.3ML EPI 1:1000PF IRRIG ONE; -ACETAMINOPHEN 325 MG TAB PO PRN; -AMVISC PLUS 0.8ML SYRINGE INT OCU ONE; -ATROPINE SULFATE 0.1 MG/ML 5ML SYR IV PRN; -BSS FLUSH ONE; -ENDOCOAT 0.85ML SYRINGE INT OCU ONE; -EpINEphrine INJ 1MG/ML AMP 1 MG/ML AMP ONE; -LACTATED RINGER'S 1000ML 500 ML IV SCH; -LIDOCAINE 4% OP SOLN DROP CHARGE ONE; -LIDOCAINE 4% OP SOLN DROP CHARGE OPR SCH; -LIDOCAINE HCL 1% MPF 2 ML VIAL ONE; -MIDAZOLAM HCL 1 MG/ML 2ML VIAL ONE; -MIX: 4ML BSS 1ML EPI 1:1000 PF TOP ONE; -MOXIFLOXACIN OPH SOLN PER DROP CHARGE ONE; -PHENYLEPHRINE 10% OPR ONE; -POVIDONE-IODINE OP SOLN 30 ML BTL ONE; -PROPARACAINE 0.5% OP SOLN PER DROP CHARGE OPR SCH; -PROPARACAINE HCL 0.5% OP SOLN 15 ML BTL OPR ONE; -TOBRAMYCIN/DEXAMETHASONE OPH OINT PER APPLN CHARGE ONE
[2017-05-02 10:38] LABS: BASO % 0.5 %; BASO ABS # 0.03 K/uL (0-0.2); COMPLETE YES; EOS % 2.2 %; HEMATOCRIT 39.6 % (37-47); IG% 0.3 %; LYMPH % 28.8 %; LYMPH ABS # 1.67 K/uL (1.2-3.4); MEAN CORPUSCULAR HEMOGLOBIN 33.8 pg (25-34); MEAN CORPUSCULAR HGB CONC 34.1 g/dl (32-36); MEAN PLATELET VOLUME 10.2 fL (7.4-10.4); MONO % 7.6 %; NEUT % 60.6 %; PLATELET COUNT 315 K/uL (130-400); WHITE BLOOD COUNT 5.79 K/uL (4.8-10.8)
[2017-05-02 11:05] LABS: ALT/SGPT 26 U/L (12-78); AST/SGOT 15 U/L (15-37); BLOOD UREA NITROGEN 33 mg/dl (7-18); BUN/CREATININE RATIO 26.6 (10-20); CALCIUM 9.6 mg/dl (8.5-10.1); CARBON DIOXIDE 26 mmol/L (21-32); CHLORIDE 104 mmol/L (98-107); CREATININE 1.25 mg/dl (0.60-1.20); GLUCOSE 112 mg/dl (70-99); SODIUM 135 mmol/L (136-145)
[2017-05-02 11:16] LABS: ALB/GLOB RATIO 0.9 (0.9-2); ALKALINE PHOSPHATASE 70 U/L (45-117); THYROID STIMULATING HORMONE 0.442 uIu/ml (0.300-4.500)
== END | disposition home or self-care (01) ==
LOC: C.LAB1850 10:01
PROVIDERS: ATTEND Nurse Practitioner Adult Health
DX: I10 Essential (primary) hypertension (principal); N28.9 Disorder of kidney and ureter, unspecified; E03.9 Hypothyroidism, unspecified